=== PATIENT | female | born 1950 | race Caucasian/White ===

== ENCOUNTER 2017-10-02 10:02 | Outpatient (CLI) | payer MEDICARE | END 2017-10-02 10:03 | disposition home or self-care (01) | LOC: BICMAMMO 10:02 | PROVIDERS: ATTEND Internal Medicine | DX: Z12.31 Encounter for screening mammogram for malignant neoplasm of breast (principal); Z98.82 Breast implant status | CPT/HCPCS: 77063; 77067 ==

== ENCOUNTER 2017-10-04 07:11 | Outpatient (CLI) | payer MEDICARE ==
--- NOTE | 2017-10-04 09:44 | CT ---
CT CHEST WITH IV CONTRAST: Date: 10/04/17 HISTORY: Lung nodules. Follow-up. COMPARISON: 06/29/16. FINDINGS: The 6.0 mm noncalcified nodule at the posterior subpleural left lower lobe is unchanged. Tiny nodules in the right lower lobe are also stable. No new masses. No evidence of pneumothorax or mediastinal a denopathy. Postoperative changes of mediastinum. Bilateral submuscular implants. IMPRESSION: Stable CT appearance of small bilateral soft tissue density lung nodules. 6.0 mm left lower lobe is t he largest. No new abnormalities. POS: [facility]
[2017-10-04] MEDS ORDERED: Iopamidol 370 76% 100 ML VIAL ONE (12:47)
== END 2017-10-04 07:12 | disposition home or self-care (01) ==
LOC: CT 07:11
PROVIDERS: ATTEND Internal Medicine Pulmonary Disease
DX: R91.8 Other nonspecific abnormal finding of lung field (principal)
CPT/HCPCS: 71260; 82565

== ENCOUNTER 2018-04-16 17:57 | Emergency (ER) | payer MEDICARE ==
[2018-04-16 18:36] LABS: #Basophils 0.1 thou/uL (0.0-0.2); #Eosinphils 0.2 thou/uL (0.0-0.7); #Lymphocytes 1.9 thou/uL (1.20-3.40); #Monocytes 0.8 thou/uL (0.11-0.59); %Basophils 0.8 % (0.0-1.0); %Eosinophils 3.5 % (0.0-10.0); %Lymphocytes 26.7 % (21.0-51.0); %Monocytes 11.8 % (0.0-10.0); %Neutrophils 57.1 % (42.0-75.0); Hemoglobin 12.8 g/dL (12.0-16.0); Mean Corpuscular HGB CONC 33.2 g/dL (32.0-36.0); Mean Corpuscular Hemoglobin 29.7 pg (27.0-31.0); Mean Corpuscular Volume 89.5 fL (78.0-98.0); Mean Platelet Volume 6.5 fL (7.4-10.4); Platelet Count 309 thou/uL (130-400); RBC Distribution Width 11.5 % (11.5-14.5); Red Blood Cell (RBC) Count 4.32 mill/uL (4.20-5.40)
[2018-04-16 19:12] LABS: Bilirubin Negative (Negative); Blood, Urine Negative (Negative); Clarity CLEAR (Clear); Glucose, Urine (Dipstick) Negative (Negative); Leukocyte Negative (Negative); Nitrite Negative (Negative); Protein, Urine (Dipstick) Negative (Neg-Trace); Specific Gravity, Urine 1.003 (1.002-1.036); Urobilinogen 0.2 mg/dL (0.2-1.0)
[2018-04-16 19:15] LABS: ALT (SGPT) 14 U/L (8-55); AST (SGOT) 21 U/L (5-34); Albumin 4.4 g/dL (3.4-4.8); Alkaline Phosphatase 139 U/L (40-150); Anion Gap 12 mmol/L (10-20); BUN (Urea Nitrogen) 10 mg/dL (9.8-20.1); Bilirubin, Total 0.2 mg/dL (0.2-1.2); CK (CPK) 62 U/L (29-168); Calc. Creatinine Clearance 0 mL/min (70-130); Calcium 9.8 mg/dL (7.8-10.44); Carbon Dioxide 27 mmol/L (23-31); Chloride 94 mmol/L (98-107); Estimated GFR-MDRD 85; Globulin 3.4 g/dL (2.4-3.5); Glucose 85 mg/dL (80-115); Lipase 17 U/L (8-78); Magnesium 1.8 mg/dL (1.6-2.6); Protein, Total 7.8 g/dL (6.0-8.3); Sodium 129 mmol/L (136-145)
[2018-04-16 19:28] LABS: Thyroid Stimulating Hormone 1.4328 uIU/mL (0.35-4.94)
--- NOTE | 2018-04-16 20:19 | RAD ---
PORTABLE CHEST: 04/16/18 HISTORY: Chest pain. COMPARISON: 08/30/16 study. Heart size is borderline. Postop sternotomy change. Increased soft tissue density which appears to be related to bilateral breast implants obscures detail. No focal infiltrates or signs of overt failure . IMPRESSION: Minimal cardiomegaly. POS: [facility]
== END 2018-04-16 22:08 | disposition home or self-care (01) ==
LOC: ERS 17:57
DX: R53.83 Other fatigue (principal); I10 Essential (primary) hypertension; F41.9 Anxiety disorder, unspecified; F32.9 Major depressive disorder, single episode, unspecified
CPT/HCPCS: 36415; 71045; 80048; 81003; 82550; 83690; 83735; 83930; 84443; 84484; 85025; 93005

== ENCOUNTER 2019-01-29 14:14 | Outpatient (CLI) | payer MEDICARE ==
--- NOTE | 2019-01-29 14:53 | MMO ---
Bilateral MAMMO Bilat Screen [facility]. CLINICAL HISTORY: Patient is 68 years old and is seen for screening. The patient has no family history of breast cancer. The patient has no personal history of cancer. The patient has a history of bilateral Implants in 2001. VIEWS: The views performed were: bilateral craniocaudal; bilateral craniocaudal with tomosynthesis; bilateral mediolateral oblique; bilateral mediolateral oblique with tomosynthesis; and bilateral Implant displaced with tomosynthesis. FILMS COMPARED: The present examination has been compared to a prior imaging study performed at [facility] on 10/02/2017. This study has been interpreted with the assistance of computer-aided detection. MAMMOGRAM FINDINGS: There are scattered fibroglandular densities. There are benign appearing calcifications seen in both breasts. There are no suspicious masses, suspicious calcifications, or new areas of architectural distortion. IMPRESSION: THERE IS NO MAMMOGRAPHIC EVIDENCE OF MALIGNANCY. A ROUTINE FOLLOW-UP MAMMOGRAM IN 1 YEAR IS RECOMMENDED. THE RESULTS OF THIS EXAM WERE SENT TO THE PATIENT. ACR BI-RADS Category 2 - Benign finding MAMMOGRAPHY NOTE: 1. A negative mammogram report should not delay a biopsy if a dominant of clinically suspicious mass is present. 2. Approximately 10% to 15% of breast cancers are not detected by mammography. 3. Adenosis and dense breasts may obscure an underlying neoplasm. Reported by: GLENN HENDRICKSON MD Electonically Signed: [id number]
--- NOTE | 2019-01-29 15:32 | BD ---
BONE DENSITOMETRY USING DEXA: HISTORY: Post menopausal screening for osteoporosis. FINDINGS LUMBAR SPINE BMD (g/cm2) T-SCORE Z-SCORE L1 0.913 -0.7 1.1 L2 1.085 0.5 2.5 L3 1.155 0.6 2.7 L4 1.128 0.6 2.8 TOTAL 1.074 0.2 2.3 BMD (g/cm2) T-SCORE Z-SCORE NECK 0.720 -1.2 0.5 TOTAL 0.877 -0.5 0.9 The 10 year fracture risk for a major osteoporotic fracture is 11% and for a hip fracture is 1.2%. IMPRESSION: Osteopenia. POS: [facility]
== END 2019-01-29 14:15 | disposition home or self-care (01) ==
LOC: BICMAMMO 14:14
PROVIDERS: ATTEND Internal Medicine
DX: Z12.31 Encounter for screening mammogram for malignant neoplasm of breast (principal); Z13.820 Encounter for screening for osteoporosis; Z78.0 Asymptomatic menopausal state; M85.80 Other specified disorders of bone density and structure, unspecified site
CPT/HCPCS: 77063; 77067; 77080

== ENCOUNTER 2022-12-19 09:43 | Outpatient (CLI) | payer MEDICARE | END 2022-12-19 09:44 | disposition home or self-care (01) | LOC: BICCT 09:43 | PROVIDERS: ATTEND Internal Medicine | DX: Z12.31 Encounter for screening mammogram for malignant neoplasm of breast (principal); Z13.820 Encounter for screening for osteoporosis; R91.1 Solitary pulmonary nodule; M85.851 Other specified disorders of bone density and structure, right thigh; M85.852 Other specified disorders of bone density and structure, left thigh; Z98.82 Breast implant status; Z78.0 Asymptomatic menopausal state | CPT/HCPCS: 71250; 77063; 77067; 77080 ==

== ENCOUNTER 2024-01-01 12:37 | Outpatient (CLI) | payer MEDICARE | END 2024-01-01 12:38 | disposition home or self-care (01) | LOC: BICMAMMO 12:37 | PROVIDERS: ATTEND Internal Medicine | DX: Z12.31 Encounter for screening mammogram for malignant neoplasm of breast (principal); Z98.82 Breast implant status | CPT/HCPCS: 77063; 77067 ==